=== PATIENT | female | born 1970 | race Caucasian/White ===

== ENCOUNTER → 2017-11-20 07:04 | Outpatient (CLI) | payer OTHER, SELFPAY ==
--- NOTE | 2017-11-20 | DI.US.S_ITS ---
PROCEDURE: US PELVIC COMPLETE INDICATIONS: LEFT PELVIC PAIN/HISTORY OF OVARIAN CYST TECHNIQUE: Real-time scanning was performed of the pelvic organs, with image documentation. Additional endovaginal scanning was necessary due to incomplete visualization of the adnexal and endometrial structures by transabdominal scanning. COMPARISON: None. FINDINGS: Transabdominal scanning: Limited scanning through the kidneys shows no hydronephrosis. No pathologic free abdominal or pelvic fluid. Endovaginal scanning: Uterus: Uterus is normal in size at 8.6 x 4.7 x 6.4 cm. The endometrium measures 4.8 mm in combined thickness. Intrauterine device is appropriately positioned. There is a 0.7 x 0.4 x 0.5 cm intramural fibroid involving the mid posterior uterus. Ovaries: Left adnexa measures 2.8 x 1.9 x 1.1 cm. Right adnexa measures 2.7 x 1.3 x 2.0 cm. The necks are sonographically normal. IMPRESSION: 1. Small uterine fibroid. 2. Intrauterine device is properly positioned. 3. Ovaries are sonographically normal. Dictated by: Radha Barskdale MD, PhD on 11/20/2017 at 8:28 Approved by: Radha Barksdale MD, PhD on 11/20/2017 at 8:33
== END ==
PROVIDERS: Visit Provider Family Medicine
DX: D25.1 Intramural leiomyoma of uterus (principal); R10.2 Pelvic and perineal pain
CPT/HCPCS: 76830; 76856

== ENCOUNTER → 2019-04-27 10:15 | Outpatient (CLI) | payer OTHER, SELFPAY ==
--- NOTE | 2019-04-27 | DI.US.S_ITS ---
LIMITED ULTRASOUND OF RIGHT BREAST: 04/27/2019 CLINICAL: Focal right breast pain and dimple. Comparison is made to exam dated: 04/27/2019 [facility]. Color flow and real-time ultrasound of the right breast were performed. Metz scale images of the real-time examination were reviewed. No significant abnormalities were seen sonographically in the right breast. Specifically, no finding to correspond to the patient's skin dimpling or pain. IMPRESSION: NEGATIVE There is no sonographic evidence of malignancy. No sonographic correlates to clinical findings of skin dimpling or upper outer quadrant pain. The patient should continue to monitor her breasts for any changes, but otherwise return to annual mammogram screening schedule. Findings and recommendations were conveyed to the patient at time of exam. This exam was interpreted at Station ID: [id number]. Electronically Signed By: Imelda saldaña/:04/27/2019 11:26:53 copy to: TREVOR ROSENBERG letter sent: Normal Exam Ultrasound BI-RADS: 1 Negative
--- NOTE | 2019-04-27 | DI.MG.S_ITS ---
BILATERAL DIGITAL DIAGNOSTIC MAMMOGRAM 3D/2D: 04/27/2019 CLINICAL: Right breast pain and lump. No prior exams were available for comparison. There are scattered fibroglandular elements in both breasts. No significant masses, calcifications, or other findings are seen in either breast. Specifically, no finding to correspond to the patient's skin dimpling in the 5:00 position, and no abnormalities in the area of upper outer quadrant pain. IMPRESSION: INCOMPLETE: NEEDS ADDITIONAL IMAGING EVALUATION There is no abnormality seen in the right breast to correspond with the skin retraction at 5 o'clock, however, ultrasound is recommended. There is no abnormality seen in the right breast to correspond with the pain in the superior lateral quadrant, however, ultrasound is recommended. Ultrasound of both areas was performed immediately following this exam. This exam was interpreted at Station ID: [id number]. NOTE: For mammograms, a report in lay terms will be sent to the patient. Approximately 15% of breast malignancies will not be visualized mammographically. In the management of a palpable breast mass, a negative mammogram must not discourage biopsy of a clinically suspicious lesion. Electronically Signed By: Imelda saldaña/:04/27/2019 11:22:48 copy to: TREVOR RUIZ BI-RADS Category 0: Incomplete [id number]
== END ==
LOC: MAMMO 10:18
PROVIDERS: PCP Student in an Organized Health Care Education/Training Program; Visit Provider Obstetrics & Gynecology
DX: R92.8 Other abnormal and inconclusive findings on diagnostic imaging of breast (principal); N64.4 Mastodynia; N63.10 Unspecified lump in the right breast, unspecified quadrant
CPT/HCPCS: 76642; 77066; G0279

== ENCOUNTER 2020-10-04 10:38 | Emergency (ER) | payer OTHER, SELFPAY ==
[2020-10-04 11:28] VITALS: BP 148/73; PULSE 75; RESP 18; TEMP 36.3; O2SAT 98; BMI 37.9
--- NOTE | 2020-10-04 11:33 | DI.RAD.S_ITS ---
PROCEDURE: XR HAND LT MIN 3V INDICATIONS: deformity TECHNIQUE: 3 views of the hand(s) acquired. COMPARISON: None. FINDINGS: Intra-articular fracture involving the base of the distal phalanx of the ring finger Carpal bones are normally aligned. No suspicious bony lesions. Chronic appearing ununited osteophytes seen at the DIP joint of the middle finger and the index finger. Soft tissues: No suspicious soft tissue calcifications. IMPRESSION: Ring finger distal phalanx fracture at the DIP joint. Dictated by: Avinash Bazan M.D. on 10/04/2020 at 11:54 Approved by: Avinash Bazan M.D. on 10/04/2020 at 11:55
--- NOTE | 2020-10-04 13:23 | ED.UPPEXIN ---
HPI - Extremity Injury (Upper) <Priscilla Durham PA-C - Last Filed: 10/04/20 20:55> General Chief Complaint: Extremity Injury, Upper Stated Complaint: broke two fingers on left hand Time Seen by Provider: 10/04/20 12:17 Mode of arrival: Ambulatory History of Present Illness HPI narrative: 50-year-old [id number]-[id number] female without significant PMH who presents to the ER complaining of left middle and ring finger injury that occurred yesterday. States she was holding her dog when she tried to run off and noticed immediate pain and swelling to the L middle and ring finger. Reports inability to extend or flex the L ring DIP. She has put a splint on the area to relieve pain. Denies numbness, tingling or additional injury. Review of Systems <Priscilla Durham PA-C - Last Filed: 10/04/20 20:55> Review of Systems Narrative: General: denies fever, chills Head/Neck: denies head trauma, neck pain Eyes: Denies eye pain, vision change MSK: denies back pain, muscle weakness Skin: Denies rash, laceration Neuro: denies LOC, numbness, weakness, loss of sensory/motor function Patient History <Priscilla Durham PA-C - Last Filed: 10/04/20 20:55> Social History Smoking Status: Former smoker Smoking Status: Former smoker alcohol intake frequency: 0-2 drinks per day Substance Use Type: does not use Exam <Priscilla Durham PA-C - Last Filed: 10/04/20 20:55> Narrative Exam Narrative: Independently reviewed vitals signs and nursing notes. General: Awake, alert, nontoxic, no cardiorespiratory distress Head/Neck: Atraumatic, neck full range of motion Eyes: EOMI, conjunctiva normal Nose: nares patent, no rhinorrhea Cardio: Regular rate and rhythm, no peripheral edema Respiratory: respirations unlabored without wheezing, stridor, or rales. No retractions. GI: Abdomen soft, nontender MSK: Mild edema, ecchymosis to the L ring DIP. Unable to flex or extend. Normal capillary refill and sensation. Hand otherwise atraumatic. Moves all extremities, neurovascularly intact Skin: Normal capillary refill, no rash Neuro: Normal speech and cognition, normal gait Initial Vital Signs Initial Vital Signs: Vital Signs Temperature 97.4 F L 10/04/20 11:28 Pulse Rate 75 10/04/20 11:28 Respiratory Rate 18 10/04/20 11:28 Blood Pressure 148/73 H 10/04/20 11:28 Pulse Oximetry 98 10/04/20 11:28 <DO Mirna Buitrago Last Filed: 10/08/20 08:47> Initial Vital Signs Initial Vital Signs: Vital Signs Temperature 97.4 F L 10/04/20 11:28 Pulse Rate 75 10/04/20 11:28 Respiratory Rate 18 10/04/20 11:28 Blood Pressure 148/73 H 10/04/20 11:28 Pulse Oximetry 98 10/04/20 11:28 Course <KATERINA Louis Last Filed: 10/04/20 20:55> Orders Ordered: ED Orders 10/04/20 11:33 XR hand LT min 3V Stat Vital Signs Vital signs: Vital Signs - 8 hr 10/04/20 14:29 Pulse Rate 76 Respiratory Rate 16 Blood Pressure 135/72 Pulse Oximetry 96 <DO Mirna Buitrago Last Filed: 10/08/20 08:47> Orders Ordered: ED Orders 10/04/20 11:33 XR hand LT min 3V Stat Vital Signs Vital signs: Vital Signs - 8 hr 10/04/20 14:29 Pulse Rate 76 Respiratory Rate 16 Blood Pressure 135/72 Pulse Oximetry 96 MDM - Extremity Injury (Upper) <KATERINA Louis Last Filed: 10/04/20 20:55> Imaging Data Extremity x-ray #1: Radiologist's Impression: PROCEDURE: XR HAND LT MIN 3V INDICATIONS: deformity TECHNIQUE: 3 views of the hand(s) acquired. COMPARISON: None. FINDINGS: Intra-articular fracture involving the base of the distal phalanx of the ring finger Carpal bones are normally aligned. No suspicious bony lesions. Chronic appearing ununited osteophytes seen at the DIP joint of the middle finger and the index finger. Soft tissues: No suspicious soft tissue calcifications. IMPRESSION: Ring finger distal phalanx fracture at the DIP joint. Dictated by: Avinash Bazan M.D. on 10/04/2020 at 11:54 Approved by: Avinash Bazan M.D. on 10/04/2020 at 11:[address] [facility] Narrative Medical decision making narrative: X-ray performed today; results with intrarticular L ring distal phalanx fracture with possible concomitant tendon injury. No evidence of fracture, septic arthritis, or neurovascular deficit. Post injury care to include rest, ice, compression, and elevation of the injured area. Begin 5-7 day course of anti-inflammatory medication (Motrin or Aleve) for pain/inflammation. Discussed non-weightbearing to L finger until further evaluation. Finger splint provided at today's visit. Follow-up with PCP or specialist as directed. Ortho referral provided. Return to clinic/ER instructions discussed for new or worsening symptoms. Discharge Plan Departure Patient Disposition: Home Clinical Impression: Closed fracture of phalanx of left ring finger Qualifiers: Encounter type: initial encounter Phalanx: distal Fracture alignment: nondisplaced Qualified Code(s): S62.665A - Nondisplaced fracture of distal phalanx of left ring finger, initial encounter for closed fracture Instructions: DI for Finger Fracture Activity Restrictions/Additional Instructions: Restrictions: Nonweightbearing to the left hand for at least 3 weeks until further evaluation. Post injury care to include rest, ice, compression, and elevation of the injured area. Begin 5-7 day course of anti-inflammatory medication (Motrin or Aleve) for pain/inflammation. *You have been diagnosed with [closed left ring finger distal phalanx fracture] *What to do: [ ] New medication prescriptions sent to your pharmacy: [ ] [ ] New medication written as a paper prescription [x] No new medications given * Please follow-up with your primary care provider or orthopedics (referrral info included) in 7-10 days, call for an appointment. Let them know you were seen in the emergency department and that we ask you to be seen in follow-up. * if you do not have a primary care provider, please contact the [facility] Resource line at [phone]. They will ask some questions about your medical history and help to get up with a doctor in the community. * Return to the if you should have any new, worsening, or concerning symptoms, such as [redness, swelling, worsened pain]. Referrals: Samantha Bourgeois, [Primary Care Provider] - Kacy Cantrell MD [Physician] - 7-10 days Stand Alone Forms: Work Release Note <Janis Rivera DO - Last Filed: 10/08/20 08:47> Cosign ED Attending Cosignature Attestation: I was immediately available in the department for consultation. Documentation has been reviewed, imaging reviewed. Case was discussed agree with plan.
[2020-10-04 14:29] VITALS: BP 135/72; PULSE 76; RESP 16; O2SAT 96
== END 2020-10-04 14:29 | disposition home or self-care (01) ==
PROVIDERS: Emergency Provider Physician Assistant; PCP Family Medicine
DX: S62.665A Nondisplaced fracture of distal phalanx of left ring finger, initial encounter for closed fracture (principal); X58.XXXA Exposure to other specified factors, initial encounter
CPT/HCPCS: 73130; 99281; 99283